=== PATIENT | female | born 1955 | race Hispanic/Latino ===

== ENCOUNTER → 2018-08-07 | Day surgery (SDC) | payer OTHER ==
[2018-08-01 16:41] LABS: ANION GAP 11.4 mmol/L (8-16); BLOOD UREA NITROGEN 16 mg/dL (7-26); BUN/CREATININE RATIO 18 (6-25); CARBON DIOXIDE 24 mmol/L (22-29); CHLORIDE 103 mmol/L (98-107); CREATININE, SERUM 0.87 mg/dL (0.57-1.11); EST GLOMERULAR FILTRATION RATE > 60 ML/MIN (60-); GLUCOSE 364 mg/dL (74-118); POTASSIUM 4.4 mmol/L (3.5-5.1); SODIUM 134 mmol/L (136-145)
[~2018-08-07] MED LIST: BUPIVACAINE HCL 0.5% INJ 30 ML VIAL INJ ONE; CLINDAMYCIN 600MG / 50ML 50 ML IV ONE; FAMOTIDINE20 MG PO; FARXIGA PO; FENTANYL CITRATE/PF 100MCG/2 ML INJ ONE; GLIPIZIDE5 MG PO; HYDROMORPHONE 2MG/ML 2 MG/ML ML ONE; LANTUS 3ML100 UNITS/ INJ; LIDOCAINE HCL 2% LOCAL INJ 5 ML SDV VIAL INJ ONE; LOSARTAN POTAS100 MG PO; LOVASTATIN40 MG PO; MIDAZOLAM HCL 2 MG/2 ML VIAL ONE; NEOSTIGMINE 1 MG/ML 10ML VIAL ONE; NIFEDIPINE ER30 M1 PO; ONDANSETRON HCL INJ 2MG/ML 2ML 2 MG/ML VIAL ONE; PROPOFOL IV EMULSION 10 MG/ML 20 ML VIAL ONE; SEVOFLURANE INHAL SOLN 250 ML PEN BTL ONE
--- OUTSIDE RECORDS SUMMARY | 2018-08-07 06:58 | XMS REPORT ---
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 Allergies, Adverse Reactions, Alerts This patient has no known allergies or adverse reactions. Medications This patient has no known medications. Results Test Description Test Time Test Comments Text Results Atomic Results Result Comments SCR MAMM BILATERAL MAYKEL CAD DIGITAL 2018-01-10 10:07:39 - SCR MAMM BILATERAL MAKYEL CAD DIGITALBILATERAL DIGITAL SCREENING MAMMOGRAM 3D/2D WITH CAD: 01/08/2018CLINICAL: Asymptomatic. Digital breast tomosynthesis was performed in addition to routine CC and MLO views. Current mammographic images were evaluated by either a SafedoX M-Vu or a Intelleflex ImageChecker CAD (computer aided detection system). Comparison is made to exams dated 12/23/2016 mammogram, mammogram, 12/04/2014 mammogram, 11/28/2013 mammogram - [facility]-, and 08/02/2010 mammogram - [facility]. There are scattered fibroglandular tissues in both breasts. No suspicious mass, architectural distortion, malignant type calcification, or lymph node abnormality detected. Breast architecture is stable compared to prior exams.IMPRESSION: NEGATIVEThere is no mammographic evidence of malignancy. Resume annual screening mammography in one year. [place] herring/pendamian:01/10/2018 10:07:39 Customer Experience Retail Clerk: Nissa ALY, [facility]-FWletter sent: BIRADS 1-2 Normal Mammogram BI-RADS: 1 Negative
[2018-08-07 12:15] VITALS: BP 116/63
--- NOTE | 2018-08-07 13:45 | Operative Report ---
DATE OF PROCEDURE: 08/07/2018 SURGEON: Yana Hawkins DPM PREOPERATIVE DIAGNOSES: 1. Chronic plantar fasciitis. 2. Calcaneal bone spur, right foot. 3. Hypertrophy of the right hallux nail. ANESTHESIA: General anesthetic. HEMOSTASIS: Pneumatic ankle tourniquet at 250 mmHg. ESTIMATED BLOOD LOSS: Less than 10 mL. MATERIALS: A human allograft graft 2 x 4 cm noted to promote healing at the insertion of the plantar fascia to prevent adhesions and nerve entrapment. COMPLICATIONS: None. CONDITION: Stable. PROCEDURE IN DETAIL: Under mild sedation, the patient was brought to the operating room, placed on the operating table in a supine position. Following IV sedation, anesthesia was obtained with a general anesthetic. At this point, the right foot was scrubbed, prepped, and draped in the usual aseptic manner. It was then lowered to the table. Attention was then directed to the medial aspect of the right, where linear incision was made overlying the plantar fascia. The incision was deepened via sharp and blunt dissection taking care to retract all vital neurovascular structures as necessary. A fascia isolator was used to isolate the fascia. Once the fascia was isolated, trocar and cannula were then inserted. A lateral portal was then made. The camera was inserted. Medial, central and lateral bands were visualized. Utilizing a fascia blade, the medial and central bands were transected leaving the lateral band intact. At this point, all instruments were removed. Now, with the use of intraoperative fluoroscopy, the protruding calcaneal spur was isolated. Utilizing a power rasp and rongeur, the calcaneal spur was removed. The area was then made smooth. The area was then flushed with copious amount of normal sterile saline solution. Utilizing an elevator and a hemostat, the standard technique, the hallux nail was removed. It was passed from the operating table. No further remnants of it was noted to the area. The area was flushed with copious amounts of normal sterile saline solution. At this point, a human allograft was then inserted into the area of the plantar fascia 2 x 4 noted to promote healing, to prevent adhesions to the area, to prevent nerve entrapment and decrease the inflammatory response. The area was then closed closing with 4-0 nylon. Clean dressing was applied consisting of Adaptic, 4x4s, Kerlix, and an Leo bandage. The tourniquet was deflated. There was noted to be hyperemic response to all the digits. The patient tolerated the procedure and anesthesia well without complications, was transferred to recovery room with vital signs stable and vascular status intact. She will be discharged home if she meets criteria. She was given instructions to be nonweightbearing, to ice and elevate the foot while at rest and to call the office if any questions, concerns, or new problems arise. LILLIAN Hoang/SUBHASHL /[id number]
== END | disposition home or self-care (01) ==
LOC: OR 06:55
PROVIDERS: ATTEND Podiatrist Foot & Ankle Surgery
DX: M72.2 Plantar fascial fibromatosis (principal); M77.31 Calcaneal spur, right foot; L60.2 Onychogryphosis; E11.9 Type 2 diabetes mellitus without complications; I10 Essential (primary) hypertension; Z01.810 Encounter for preprocedural cardiovascular examination; Z01.812 Encounter for preprocedural laboratory examination; Z88.0 Allergy status to penicillin; Z79.4 Long term (current) use of insulin
CPT/HCPCS: 36415; 76000; 80048; 82948; 93005; J2001; J2250; J2405; J2710; Q4150

== ENCOUNTER → 2018-11-21 | Outpatient (CLI) | payer OTHER ==
[~2018-11-21] MED LIST changes: -BUPIVACAINE HCL 0.5% INJ 30 ML VIAL INJ ONE; -CLINDAMYCIN 600MG / 50ML 50 ML IV ONE; -FENTANYL CITRATE/PF 100MCG/2 ML INJ ONE; -HYDROMORPHONE 2MG/ML 2 MG/ML ML ONE; -LIDOCAINE HCL 2% LOCAL INJ 5 ML SDV VIAL INJ ONE; -MIDAZOLAM HCL 2 MG/2 ML VIAL ONE; -NEOSTIGMINE 1 MG/ML 10ML VIAL ONE; -ONDANSETRON HCL INJ 2MG/ML 2ML 2 MG/ML VIAL ONE; -PROPOFOL IV EMULSION 10 MG/ML 20 ML VIAL ONE; +REGADENOSON 0.4 MG/5 ML SYR IV ONE; -SEVOFLURANE INHAL SOLN 250 ML PEN BTL ONE
--- NOTE | 2018-11-26 16:38 | Myoview Stress Test ---
DATE OF STUDY: 11/21/2018 10:15:00 Stress Test - Treadmill ONLY PROCEDURE: Nuclear gated myocardial perfusion scan report. Lexiscan stress test performed as per protocol at [facility]. The Lexiscan stress test is supervised by Dr. Volodymyr Islas. I read only the nuclear part of the stress test. Lexiscan injected 0.4 mg intravenously. Cardiac Myoview injected 11 mCi for resting protocol, 33 mCi for stress protocol. IMPRESSION: Normal gated myocardial perfusion scan. LV ejection fraction 60%. No ischemia or scar noted. Thank you Dr. Volodymyr Islas for this procedure consultation. This stress test is supervised by Dr. Volodymyr Islas. I read only the nuclear part of the stress test. MD PAULA Salazar/MODL /[id number]
== END ==
LOC: NM 10:01
PROVIDERS: ATTEND Internal Medicine Cardiovascular Disease
DX: R06.02 Shortness of breath (principal)
CPT/HCPCS: 78452; 93017; A9502; J2785

== ENCOUNTER → 2019-01-21 | Day surgery (SDC) | payer OTHER ==
[2019-01-18 14:30] LABS: BASOPHILS % 0.2 % (0.0-1.0); EOSINOPHILS # (AUTO) 0.1 (0.0-0.4); EOSINOPHILS % 1.1 % (0.0-6.0); LYMPHOCYTES # (AUTO) 2.5 (1.0-3.2); LYMPHOCYTES % 28.6 % (18.0-39.1); MEAN CORPUSCULAR HEMOGLOBIN 29.7 pg (28-32); MEAN CORPUSCULAR HGB CONC 32.5 g/dL (31-35); MEAN CORPUSCULAR VOLUME 91.5 fL (81-99); MONOCYTES # (AUTO) 0.5 (0.2-0.8); MONOCYTES % 5.6 % (4.4-11.3); NEUTROPHILS # (AUTO) 5.7 (2.1-6.9); NEUTROPHILS % 64.3 % (38.7-80.0); PLATELET COUNT 290 x10e3/uL (140-360); RED BLOOD COUNT 4.37 x10e6/uL (3.6-5.1); RED CELL DISTRIBUTION WIDTH 13.2 % (11.7-14.4)
[2019-01-18 14:40] LABS: INR 0.81; PROTHROMBIN TIME 11.7 seconds (11.9-14.5)
[2019-01-18 14:41] LABS: PARTIAL THROMBOPLASTIN TIME 38.3 seconds (23.8-35.5)
[2019-01-18 14:47] LABS: ALANINE AMINOTRANSFERASE 30 IU/L (0-55); ALBUMIN 3.8 g/dL (3.5-5.0); ALKALINE PHOSPHATASE 94 IU/L (40-150); ANION GAP 10.9 mmol/L (8-16); BLOOD UREA NITROGEN 14 mg/dL (7-26); BUN/CREATININE RATIO 24 (6-25); CALCIUM 9.7 mg/dL (8.4-10.2); CARBON DIOXIDE 29 mmol/L (22-29); CHLORIDE 105 mmol/L (98-107); CREATININE, SERUM 0.58 mg/dL (0.57-1.11); EST GLOMERULAR FILTRATION RATE > 60 ML/MIN (60-); POTASSIUM 3.9 mmol/L (3.5-5.1); SODIUM 141 mmol/L (136-145)
[2019-01-18 14:56] LABS: GLUCOSE 54 mg/dL (74-118)
[~2019-01-21] VITALS: Ht 149.9 cm; Wt 68.0 kg
[2019-01-21] VITALS (16 sets, daily range): BP systolic 125–147; BP diastolic 48–63
[~2019-01-21] MED LIST changes: +ASPIRIN 325 MG TAB ONE; +FENTANYL CITRATE/PF 100MCG/2 ML INJ ONE; +HEPARIN SOD (PORCINE) 1000 UNIT/ML 30ML ONE; +HEPARIN SOD/SOD CHLORIDE 1,000 ML ONE; +IOPAMIDOL 370 MG/ML 200 ML INFUS..BTL INJ ONE; +LIDOCAINE HCL 2% LOCAL 20 ML VIAL ONE; +MIDAZOLAM HCL 2 MG/2 ML VIAL ONE; +NITROGLYCERIN/D5W 200 MCG/ML 0 ML ONE; +OMEPRAZOLE40 MG PO; -REGADENOSON 0.4 MG/5 ML SYR IV ONE; +SODIUM CHLORIDE 0.9% 1000ML 1,000 ML ONE
--- NOTE | 2019-01-21 08:02 | NUR ---
Aspirin 325mg po given as ordered. NS @ 150ml/hr for 500ml bolus started to R hand 20g IV as ordered. Pt tolerating well. Will continue to monitor.
--- NOTE | 2019-01-21 22:53 | Operative Report ---
DATE OF PROCEDURE: 01/21/2019 SURGEON: Dalton Estrada MD CARDIAC CATHETERIZATION This is a right and left heart catheterization and coronary angiography for the patient with dyspnea on exertion concerning for angina pectoris and screening across the LVOT/aortic valve on echocardiogram with 2D image visualization of adequate valve insertion, in congruent with valvular stenosis and suspicious for subaortic stenosis. PROCEDURE PERFORMED: 1. Left heart catheterization. 2. Selective coronary angiography. 3. Right heart catheterization. 4. Right common femoral artery 6-Peruvian Angio-Seal closure. PROCEDURE COMPLICATIONS: None. ESTIMATED BLOOD LOSS: Less than 15 cc. PROCEDURE SUMMARY: After consent was obtained, the patient was prepped and draped in a sterile fashion. The right femoral site was locally infiltrated with 2% lidocaine and with micropuncture kit, access was obtained to the right common femoral artery and then to right common femoral vein. A 7-Peruvian sheath was placed in the right common femoral vein and a 6-Peruvian sheath was placed to the right common femoral artery. The PA catheter was advanced with inflated balloon. Pulmonary capillary wedge pressure position with balloon inflated to position, Carlos cardiac output thermodilution, cardiac output the PA catheter was then performed by placing pigtail catheter was used to cross the aortic valve for hemodynamic measurements. The catheter was positioned at separate points. JL4 6-Peruvian catheter and JR4 6-Peruvian catheter were used for left main and right coronary artery angiography which was performed in multiple views. At this point, the following findings were noted: 1. No left ventriculogram was performed. 2. Left main is large in caliber with luminal irregularities giving an LAD and a circumflex. 3. The LAD has luminal irregularities throughout, diagonal multiple septal perforators and small caliber. 4. Circumflex has luminal irregularity and obtuse marginal of medium caliber and free. Left posterolateral branches are small caliber. 5. The right coronary artery has luminal irregularities in three RV marginal and a terminal RPDA and RPLV. 6. Carlos cardiac output was 5.62. Carlos cardiac index was 3.44. Thermodilution cardiac output was 5.7, thermodilution cardiac index was 3.49. RA pressure of pressure 6. 7. RV pressure was 35/7 with end-diastolic pressure of 10. 8. PA pressure was 33/19. 9. Pulmonary capillary wedge pressure A-wave 14, B-wave 15, mean 12. 10. LV pressure 160/9 with end-diastolic pressure of 26. 11. Aortic pressure 135/53. 12. Aortic valve area calculated 1.4 cm2 by [place], with a mean gradient of 15 mmHg. On evaluation, catheter pigtail positions when catheter to LV apex, there was a significant gradient. This mostly resolved when the catheter is brought in proximity to LVOT. 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 RECOMMEND: 1. Avoid excessive diuresis. 2. Rate control. 3. Control blood pressure. 4. Assess response to beta-alberto plus/minus calcium channel blockers in the setting of this if necessary consider evaluation for surgical alternatives for IHSS. MD JOSEFA Mercado/SUBHASHL /[id number]
== END | disposition home or self-care (01) ==
LOC: CATH LAB 06:56
PROVIDERS: ATTEND Internal Medicine Cardiovascular Disease
DX: I20.9 Angina pectoris, unspecified (principal); I42.1 Obstructive hypertrophic cardiomyopathy; I10 Essential (primary) hypertension; E78.5 Hyperlipidemia, unspecified; E11.9 Type 2 diabetes mellitus without complications; Z79.84 Long term (current) use of oral hypoglycemic drugs; Z82.3 Family history of stroke; Z83.3 Family history of diabetes mellitus; Z82.49 Family history of ischemic heart disease and other diseases of the circulatory system; Z88.0 Allergy status to penicillin; Z01.810 Encounter for preprocedural cardiovascular examination; Z01.812 Encounter for preprocedural laboratory examination
CPT/HCPCS: 36415; 80053; 85025; 85610; 85730; 93005; 93460; C1751; C1758; C1760; C1766; J1644; J2001; J2250; J3010; J7030; Q9967; 99152; 99153

== ENCOUNTER 2019-01-22 12:55 | Outpatient (RCR) | payer OTHER ==
[~2019-01-22 12:55] MED LIST changes: -ASPIRIN 325 MG TAB ONE; -FENTANYL CITRATE/PF 100MCG/2 ML INJ ONE; -HEPARIN SOD (PORCINE) 1000 UNIT/ML 30ML ONE; -HEPARIN SOD/SOD CHLORIDE 1,000 ML ONE; -IOPAMIDOL 370 MG/ML 200 ML INFUS..BTL INJ ONE; -LIDOCAINE HCL 2% LOCAL 20 ML VIAL ONE; -MIDAZOLAM HCL 2 MG/2 ML VIAL ONE; -NITROGLYCERIN/D5W 200 MCG/ML 0 ML ONE; -SODIUM CHLORIDE 0.9% 1000ML 1,000 ML ONE
== END 2019-01-26 ==
LOC: PT 12:55
PROVIDERS: ATTEND Podiatrist Foot & Ankle Surgery
DX: M72.2 Plantar fascial fibromatosis (principal)

== ENCOUNTER → 2024-08-01 | Day surgery (SDC) | payer MEDICARE, OTHER ==
[2024-07-30 14:31] LABS: BASOPHILS % 0.5 % (0.0-1.0); EOSINOPHILS # (AUTO) 0.1 (0.0-0.4); EOSINOPHILS % 1.4 % (0.0-6.0); HEMATOCRIT 34.2 % (34.2-44.1); HEMOGLOBIN 10.5 g/dL (12.0-16.0); LYMPHOCYTES # (AUTO) 2.6 (1.0-3.2); LYMPHOCYTES % 32.9 % (18.0-39.1); MEAN CORPUSCULAR HGB CONC 30.7 g/dL (31-35); MEAN CORPUSCULAR VOLUME 84.7 fL (81-99); MONOCYTES # (AUTO) 0.4 (0.2-0.8); NEUTROPHILS # (AUTO) 4.7 (2.1-6.9); NEUTROPHILS % 59.9 % (38.7-80.0); PLATELET COUNT 257 x10e3/uL (140-360); RED BLOOD COUNT 4.04 x10e6/uL (3.6-5.1)
[~2024-08-01] MED LIST changes: +FARXIGA10 MG PO; +LACTATED RINGER'S 1,000 ML ONE; +LIDOCAINE HCL 2% LOCAL INJ 5 ML SDV VIAL INJ ONE; +METOPROLOL SUCC50 MG PO; +PROPOFOL IV EMULSION 10 MG/ML 20 ML VIAL ONE
[2024-08-01 10:09] VITALS: TEMP 98.5
[2024-08-01 10:30] VITALS: BP 142/80; PULSE 85; RESP 16; O2SAT 98
== END | disposition home or self-care (01) ==
LOC: OR 07:49
PROVIDERS: ATTEND Internal Medicine Gastroenterology
DX: Z09 Encounter for follow-up examination after completed treatment for conditions other than malignant neoplasm (principal); Z86.0100 Personal history of colon polyps, unspecified; K57.30 Diverticulosis of large intestine without perforation or abscess without bleeding; K64.8 Other hemorrhoids; K21.9 Gastro-esophageal reflux disease without esophagitis; E11.9 Type 2 diabetes mellitus without complications; I10 Essential (primary) hypertension; E78.5 Hyperlipidemia, unspecified; Z78.9 Other specified health status; Z88.0 Allergy status to penicillin; Z01.810 Encounter for preprocedural cardiovascular examination; Z01.812 Encounter for preprocedural laboratory examination; Z79.84 Long term (current) use of oral hypoglycemic drugs; Z79.4 Long term (current) use of insulin; Z79.899 Other long term (current) drug therapy; Z68.35 Body mass index [BMI] 35.0-35.9, adult; Z71.3 Dietary counseling and surveillance
CPT/HCPCS: 36415 ×2; 45378; 82948; 85025; 93005; J2003; J2704; J7121